=== PATIENT | male | born 1975 | race Caucasian/White ===

== ENCOUNTER 2023-08-02 20:35 | Emergency (ER) | payer MEDICAID ==
[~2023-08-02] VITALS: Ht 172.7 cm; Wt 99.7 kg
[2023-08-02 21:15] VITALS: O2SAT 99
[2023-08-02 23:45] LABS: CARBON DIOXIDE 29 mEq/L (21-32); CHLORIDE 105 mEq/L (98-107); POTASSIUM 4.4 mEq/L (3.5-5.1); SODIUM 139 mEq/L (136-145)
[2023-08-02 23:46] LABS: CALCIUM 10.4 mg/dL (8.7-10.4)
[2023-08-02 23:51] LABS: CREATININE 0.9 mg/dL (0.6-1.3); GLUCOSE 101 mg/dL (70-105); UREA NITROGEN BLOOD 16 mg/dL (9-23)
[2023-08-02 23:52] LABS: ALANINE AMINOTRANSFERASE 127 IU/L (10-49); ASPARTATE AMINOTRANSFERASE 48 IU/L (<34)
[2023-08-02 23:53] LABS: ALBUMIN 4.7 g/dL (3.2-4.8); BILIRUBIN TOTAL 0.5 mg/dL (0.1-1.0); PROTEIN TOTAL 7.7 g/dL (6.0-8.3)
[2023-08-02 23:54] LABS: BASOPHILS % 0.4 % (0.0-2.0); EOSINOPHILS % 7.7 % (0.0-5.0); HEMATOCRIT. 41.4 % (42.0-52.0); HEMOGLOBIN. 14.3 g/dL (14.0-18.0); LYMPHOCYTES % 33.8 % (20.0-50.0); MEAN CORPUSCULAR HEMOGLOBIN 30.7 pg (28.0-32.0); MEAN CORPUSCULAR HGB CONC 34.6 g/dL (31.0-37.0); MEAN CORPUSCULAR VOLUME 88.9 fL (80.0-94.0); MEAN PLATELET VOLUME 8.7 fl (7.4-10.4); MONOCYTES % 7.2 % (2.0-8.0); NEUTROPHILS % 50.9 % (40.0-76.0); PLATELET 189 x1000/uL (130-400); RED BLOOD CELL COUNT 4.65 mill/uL (4.7-6.1); RED CELL DISTRIBUTION WIDTH 13.5 % (11.6-14.6); TROPONIN I HIGH SENSITIVITY 6 ng/L (3.0-53); WHITE BLOOD COUNT 10.8 x1000/uL (4.5-11.0)
[2023-08-03 00:02] LABS: ETHANOL BLOOD < 10 mg/dL (<10)
[2023-08-03 00:06] LABS: PARTIAL THROMBOPLASTIN TIME 25.3 sec (23.4-31.0); PROTHROMBIN TIME 10.9 sec (9.6-11.0)
[2023-08-03] MEDS ORDERED: KETOROLAC 60MG/2ML VIAL IM ONE (01:15)
[2023-08-03] MEDS: KETOROLAC 15MG/ML VIAL IV ONE (01:36)
[2023-08-03] MEDS: ACETAMINOPHEN 325MG TABLET PO ONE (01:37)
[2023-08-03 01:42] LABS: *AMPHETAMINES SCREEN URINE NEGATIVE (NEGATIVE); *BARBITURATES SCREEN URINE NEGATIVE (NEGATIVE); *BENZODIAZEPINES SCREEN URINE NEGATIVE (NEGATIVE); *COCAINE SCREEN URINE NEGATIVE (NEGATIVE); CANNABINOID URINE SCREEN NEGATIVE (NEGATIVE); METHADONE URINE SCREEN NEGATIVE (NEGATIVE); OPIATES URINE SCREEN NEGATIVE (NEGATIVE); PHENCYCLIDINE URINE SCREEN NEGATIVE (NEGATIVE)
[2023-08-03 01:43] LABS: ECSTASY MDMA SCREEN URINE NEGATIVE (NEGATIVE)
[2023-08-03 03:41] LABS: TROPONIN I HIGH SENSITIVITY < 4 ng/L (3.0-53)
[2023-08-03] MEDS ORDERED: NAPR275T96 MT (04:08)
[2023-08-03 04:26] VITALS: BP 140/92; PULSE 68; RESP 13; TEMP 97.9
== END 2023-08-03 04:30 | disposition home or self-care (01) ==
LOC: ER 20:35
DX: R07.89 Other chest pain (principal); I10 Essential (primary) hypertension; F19.90 Other psychoactive substance use, unspecified, uncomplicated; E03.8 Other specified hypothyroidism
CPT/HCPCS: 80053; 80320; 83880; 83690; 85025; 85610; 85730; 84484 ×2; 36415 ×2; 71045; 93005 ×2; 99285; 80305; 96374; J1885 ×2; Z7610 ×3; G0480